=== PATIENT | male | born 1960 | race Caucasian/White ===

== ENCOUNTER 2017-09-16 14:42 | Emergency (ER) | payer MEDICAID, OTHER ==
[~2017-09-16] VITALS: Ht 175.3 cm; Wt 75.3 kg
[2017-09-16] MEDS ORDERED: ipratropium/albuterol 3ml nebule NEB ONE (15:55)
[2017-09-16] MEDS ORDERED: methylPREDNISolone sod succ 125mg/2ml vial IV ONE (15:55)
[2017-09-16 16:21] LABS: BASOPHILS # (AUTO) 0.1 X10'3 (0-0.2); BASOPHILS % (AUTO) 0.8 % (0-1); EOSINOPHILS # (AUTO) 0.8 X10'3 (0-0.9); EOSINOPHILS % (AUTO) 7.1 % (0-6); HEMOGLOBIN 16.8 g/dl (14.0-17.9); LYMPHOCYTES # (AUTO) 2.4 X10'3 (1.1-4.8); LYMPHOCYTES % (AUTO) 21.6 % (21-51); MEAN CORPUSCULAR HEMOGLOBIN 34.3 PG (27.0-31.0); MEAN CORPUSCULAR HGB CONC 34.2 % (33.0-36.5); MEAN CORPUSCULAR VOLUME 100.1 FL (78-98); MEAN PLATELET VOLUME 7.8 FL (7.4-10.4); MONOCYTES # (AUTO) 0.5 X10'3 (0-0.9); MONOCYTES % (AUTO) 4.8 % (2-12); NEUTROPHILS # (AUTO) 7.2 X10'3 (1.8-7.7); NEUTROPHILS % (AUTO) 65.7 % (42-75); PLATELET COUNT 297 X10'3 (140-440); RED BLOOD COUNT 4.89 X10'6 (4.70-6.10); RED CELL DISTRIBUTION WIDTH 13.1 % (11.5-14.5)
[2017-09-16 16:44] LABS: ALANINE AMINOTRANSFERASE 25 U/L (12-78); ALBUMIN 4.2 G/DL (3.4-5.0); ALBUMIN/GLOBULIN RATIO 1.1 (1.1-1.5); ALKALINE PHOSPHATASE 84 IU/L (46-116); ANION GAP 8 (8-16); ASPARTATE AMINO TRANSFERASE 16 U/L (10-37); BILIRUBIN,TOTAL 0.5 MG/DL (0.1-1.0); BLOOD UREA NITROGEN 13 MG/DL (7-18); BUN/CREATININE RATIO 15.3 (5.4-32.0); CALCIUM 9.3 MG/DL (8.5-10.1); CHLORIDE 106 MMOL/L (99-107); CREATININE 0.85 MG/DL (0.60-1.10); GLUCOSE 120 MG/DL (70-104); POTASSIUM 4.1 MMOL/L (3.5-5.1); SODIUM 143 MMOL/L (135-145); TOTAL CARBON DIOXIDE 29.3 MMOL/L (24-32); TOTAL PROTEIN 7.9 G/DL (6.4-8.2); eGFR > 90 ML/MIN
[2017-09-16 16:54] LABS: PARTIAL THROMBOPLASTIN TIME 29 SECONDS (22-32); PROTHROMBIN TIME 10.1 SECONDS (9.0-12.0)
[2017-09-16] MEDS ORDERED: AZIT250T PO (16:59)
[2017-09-16] MEDS ORDERED: ALBU8.5H8 IH (16:59)
[2017-09-16] MEDS ORDERED: PRED10TA23 PO (16:59)
[2017-09-16 17:34] VITALS: BP 123/86
== END 2017-09-16 17:35 | disposition home or self-care (01) ==
LOC: ER 14:43
DX: J44.1 Chronic obstructive pulmonary disease with (acute) exacerbation (principal); F17.200 Nicotine dependence, unspecified, uncomplicated; F12.10 Cannabis abuse, uncomplicated
CPT/HCPCS: 36415; 71045; 80053; 83605; 84484; 85025; 85610; 85730; 87040; 93005; 94640; 94760; 96374; 99285; J2930

== ENCOUNTER 2018-11-16 07:57 | Emergency (ER) | payer MEDICAID ==
[~2018-11-16] VITALS: Ht 175.3 cm; Wt 73.2 kg
[~2018-11-16 07:57] MED LIST: ALBU8.5H8 IH; AZIT250T PO
[2018-11-16] MEDS ORDERED: albuterol 2.5 MG/3 ML nebule CONTNEB PRN (08:05)
[2018-11-16] MEDS ORDERED: normal saline 1000ML IV soln IVB ONE (08:05)
[2018-11-16] MEDS ORDERED: methylPREDNISolone sod succ 125mg/2ml vial IV ONE (08:05)
[2018-11-16 08:52] LABS: BASOPHILS # (AUTO) 0.1 X10'3 (0-0.2); BASOPHILS % (AUTO) 1.4 % (0-1); EOSINOPHILS # (AUTO) 0.5 X10'3 (0-0.9); EOSINOPHILS % (AUTO) 6.7 % (0-6); HEMATOCRIT 47.7 % (42.0-52.0); HEMOGLOBIN 16.7 g/dl (14.0-17.9); LYMPHOCYTES # (AUTO) 2.4 X10'3 (1.1-4.8); MEAN CORPUSCULAR HEMOGLOBIN 34.9 PG (27.0-31.0); MEAN CORPUSCULAR VOLUME 99.6 FL (78-98); MEAN PLATELET VOLUME 8.2 FL (7.4-10.4); MONOCYTES # (AUTO) 0.6 X10'3 (0-0.9); NEUTROPHILS # (AUTO) 4.2 X10'3 (1.8-7.7); NEUTROPHILS % (AUTO) 53.9 % (42-75); PLATELET COUNT 284 X10'3 (140-440); RED BLOOD COUNT 4.79 X10'6 (4.70-6.10); RED CELL DISTRIBUTION WIDTH 12.8 % (11.5-14.5); WHITE BLOOD COUNT 7.9 X10'3 (4.5-11.0)
[2018-11-16 08:59] LABS: ALANINE AMINOTRANSFERASE 22 U/L (12-78); ALBUMIN 4.1 G/DL (3.4-5.0); ALBUMIN/GLOBULIN RATIO 1.1 (1.1-1.5); ALKALINE PHOSPHATASE 91 IU/L (46-116); ANION GAP 6 (8-16); ASPARTATE AMINO TRANSFERASE 15 U/L (10-37); BILIRUBIN,TOTAL 0.6 MG/DL (0.1-1.0); BLOOD UREA NITROGEN 12 MG/DL (7-18); CALCIUM 9.4 MG/DL (8.5-10.1); CHLORIDE 105 MMOL/L (99-107); CREATININE 0.86 MG/DL (0.60-1.10); GLUCOSE 90 MG/DL (70-104); POTASSIUM 4.2 MMOL/L (3.5-5.1); SODIUM 138 MMOL/L (135-145); TOTAL PROTEIN 7.8 G/DL (6.4-8.2); eGFR > 90 ML/MIN
[2018-11-16] MEDS ORDERED: ALBU6.7H INH (09:04)
[2018-11-16] MEDS ORDERED: PRED20TA PO (09:04)
[2018-11-16] MEDS ORDERED: FLUT1AER INH (09:04)
[2018-11-16 09:11] VITALS: BP 120/75
== END 2018-11-16 09:12 | disposition home or self-care (01) ==
LOC: ER 07:58
DX: J44.1 Chronic obstructive pulmonary disease with (acute) exacerbation (principal); F12.90 Cannabis use, unspecified, uncomplicated; Z98.890 Other specified postprocedural states; Z79.899 Other long term (current) drug therapy
CPT/HCPCS: 36415; 71045; 80053; 85025; 93005; 94640; 94760; 96374; 99284; J2930; J7030

== ENCOUNTER 2019-08-23 18:36 | Emergency (ER) | payer MEDICAID ==
[~2019-08-23] VITALS: Ht 175.3 cm; Wt 75.0 kg
[~2019-08-23 18:36] MED LIST changes: +ALBU6.7H9 INH; +FLUT1AER INH
[2019-08-23 18:39] VITALS: BP 158/87
[2019-08-23] MEDS ORDERED: HYDROcodone/acetaminophen 10/325mg tab PO STA (18:42)
--- NOTE | 2019-08-23 18:44 | NUR ---
PT HAS ICE PACK AND SAFE RIDE HOME. NORCO AND XRAY HAVE BEEN ORDERED PER PROTOCOL.
[2019-08-23] MEDS ORDERED: HYDR-4383 PO (20:08)
[2019-08-23] MEDS ORDERED: IBUP-1984 PO (20:08)
== END 2019-08-23 20:43 | disposition home or self-care (01) ==
LOC: ER 18:36
DX: S52.502A Unspecified fracture of the lower end of left radius, initial encounter for closed fracture (principal); J44.9 Chronic obstructive pulmonary disease, unspecified; F12.90 Cannabis use, unspecified, uncomplicated; Z98.890 Other specified postprocedural states; Z79.2 Long term (current) use of antibiotics; Z79.899 Other long term (current) drug therapy; W11.XXXA Fall on and from ladder, initial encounter; Y93.89 Activity, other specified; Y92.89 Other specified places as the place of occurrence of the external cause; Y99.8 Other external cause status
CPT/HCPCS: 29125; 73110; 99283

== ENCOUNTER 2019-09-02 15:17 | Outpatient (CLI) | payer MEDICAID ==
[~2019-09-02 15:17] MED LIST changes: +HYDR-4383 PO
[2019-09-03] MEDS ORDERED: TIOT4MIS2 PO (12:18)
== END 2019-09-02 17:30 | disposition home or self-care (01) ==
LOC: ORTHO 15:17
PROVIDERS: ATTEND Orthopaedic Surgery
DX: S52.552D Other extraarticular fracture of lower end of left radius, subsequent encounter for closed fracture with routine healing (principal); J44.9 Chronic obstructive pulmonary disease, unspecified; F17.210 Nicotine dependence, cigarettes, uncomplicated; F12.90 Cannabis use, unspecified, uncomplicated; Z98.890 Other specified postprocedural states; Z72.89 Other problems related to lifestyle; Z79.899 Other long term (current) drug therapy; X58.XXXD Exposure to other specified factors, subsequent encounter
CPT/HCPCS: 73110; G0463

== ENCOUNTER 2019-09-03 11:00 | Day surgery (SDC) | payer MEDICAID ==
[~2019-09-03] VITALS: Ht 175.3 cm; Wt 78.6 kg
[2019-09-03] VITALS (9 sets, daily range): BP systolic 119–161; BP diastolic 74–92
[2019-09-03] MEDS ORDERED: cefazolin/dext.iso 2gm/100ml 100 ML IV ONE (11:05)
[2019-09-03] MEDS ORDERED: ringers solution, lacted 1,000 ML IV SCH ×3 (11:06→12:59)
[2019-09-03] MEDS ORDERED: famotidine 10mg tablet PO ONE (11:06)
[2019-09-03] MEDS ORDERED: morphine 4 MG/ML inj SYRINge IV PRN ×4 (11:40→13:00)
[2019-09-03] MEDS ORDERED: ondansetron/PF 4mg/2ml inj IV PRN ×2 (11:40→13:00)
[2019-09-03] MEDS ORDERED: proCHLORperazine 10 MG/2 ml inj IV PRN (11:40)
[2019-09-03] MEDS ORDERED: meperidine/PF 25mg/ml syringe IV PRN ×3 (11:40)
[2019-09-03] MEDS ORDERED: albuterol 2.5 MG/3 ML nebule NEB ONE (11:55)
[2019-09-03 12:05] LABS: BASOPHILS # (AUTO) 0.1 X10'3 (0-0.2); BASOPHILS % (AUTO) 0.9 % (0-1); EOSINOPHILS # (AUTO) 0.4 X10'3 (0-0.9); EOSINOPHILS % (AUTO) 4.9 % (0-6); LYMPHOCYTES # (AUTO) 2.2 X10'3 (1.1-4.8); LYMPHOCYTES % (AUTO) 24.3 % (21-51); MEAN CORPUSCULAR HEMOGLOBIN 35.6 PG (27.0-31.0); MEAN CORPUSCULAR HGB CONC 35.2 g/dL (33.0-36.5); MEAN CORPUSCULAR VOLUME 101.1 FL (78-98); MEAN PLATELET VOLUME 7.7 FL (7.4-10.4); MONOCYTES # (AUTO) 0.6 X10'3 (0-0.9); MONOCYTES % (AUTO) 6.8 % (2-12); NEUTROPHILS # (AUTO) 5.6 X10'3 (1.8-7.7); NEUTROPHILS % (AUTO) 63.1 % (42-75); PRE OP HEMATOCRIT 46.5 % (42.0-52.0); PRE OP HEMOGLOBIN 16.4 g/dL (14.0-17.9); PRE OP PLATELET COUNT 296 X10'3 (140-440); RED CELL DISTRIBUTION WIDTH 13.2 % (11.5-14.5)
[2019-09-03] MEDS ORDERED: TIOT4MIS2 PO (12:18)
[2019-09-03 12:22] LABS: ALBUMIN/GLOBULIN RATIO 1.1 (1.1-1.5); ALKALINE PHOSPHATASE 87 IU/L (46-116); BLOOD UREA NITROGEN 10 MG/DL (7-18); BUN/CREATININE RATIO 10.9 (5.4-32.0); CALCIUM 9.2 MG/DL (8.5-10.1); CHLORIDE 107 MMOL/L (99-107); CREATININE 0.92 MG/DL (0.60-1.10); PRE OP ALT 29 U/L (30-65); PRE OP ANION GAP 6 (8-16); PRE OP AST 13 U/L (10-37); PRE OP BILIRUB, TOTAL 0.5 MG/DL (0.0-1.0); PRE OP GLUCOSE 97 MG/DL (70-104); PRE OP POTASSIUM 4.3 MMOL/L (3.4-5.1); PRE OP SODIUM 141 MMOL/L (135-145); TOTAL CARBON DIOXIDE 28.5 MMOL/L (24-32); TOTAL PROTEIN 7.5 G/DL (6.4-8.2); eGFR 84 ML/MIN
[2019-09-03] MEDS ORDERED: hydrALAZINE 20mg/ml inj. IV PRN (13:00)
[2019-09-03] MEDS ORDERED: labetalol 20mg/4ml (5mg/ml) syringe IV PRN (13:00)
[2019-09-03] MEDS ORDERED: fentaNYL/PF 50MCG/1 ML 2ML syringe IV PRN ×2 (13:00)
[2019-09-03] MEDS ORDERED: dexamethasone sod phosphate 10mg/ml inj ONE (13:45)
[2019-09-03] MEDS ORDERED: labetalol 20mg/4ml (5mg/ml) syringe IV ONE (13:45)
[2019-09-03] MEDS ORDERED: sevoflurane 250ml liquid IH ONE (13:45)
[2019-09-03] MEDS ORDERED: fentaNYL/PF 50MCG/1 ML 2ML syringe ONE ×2 (13:50→15:05)
[2019-09-03] MEDS ORDERED: midazolam 2 mg/2 ml injection ONE (13:50)
[2019-09-03] MEDS ORDERED: LIDOcaine 1%/PF 5ML 10 MG/ML VIAL ONE (13:51)
[2019-09-03] MEDS ORDERED: propofol inj 20 ML IV ONE (13:51)
[2019-09-03] MEDS ORDERED: ROPIVAcaine 0.5% (5mg/ml) 30ml vial ONE (13:55)
[2019-09-03] MEDS ORDERED: ondansetron/PF 4mg/2ml inj ONE (14:07)
--- NOTE | 2019-09-03 15:20 | NUR ---
Received from OR via BED, accompanied by Anesthesiologist DR CRANE-- and report given by Anesthesiolgist. PATIENT A&OX4, DENIES PAIN, V/S WNL, NEUROVASCULAR CHECKS INTACT, 20G PIV RUE, SCD ON, LEFT ARM DRESSING SPLINT CDI
[2019-09-03] MEDS ORDERED: HYDROcodone/acetaminophen 10/325mg tab PO ONE (15:50)
--- NOTE | 2019-09-03 16:20 | NUR ---
PATIENT A&OX4, DENIES PAIN, V/S WNL, NEUROVASCULAR CHECKS INTACT, 20G PIV RUE d/c, SCD Off, LEFT ARM DRESSING SPLINT CDI. I HAVE REVIEWED D/C INSTRUCTIONS WITH PATIENT AND FAMILY AND THEY HAVE VERBALIZED UNDERSTANDING. PATIENT D/C HOME WITH ALL BELONGINGS AND FAMILY GAVE TRANSPORT HOME.
== END 2019-09-03 16:20 | disposition home or self-care (01) ==
LOC: PAS 11:00
PROVIDERS: ATTEND Orthopaedic Surgery
DX: S52.552A Other extraarticular fracture of lower end of left radius, initial encounter for closed fracture (principal); J44.9 Chronic obstructive pulmonary disease, unspecified; F17.210 Nicotine dependence, cigarettes, uncomplicated; Z98.890 Other specified postprocedural states; F12.90 Cannabis use, unspecified, uncomplicated; Z72.89 Other problems related to lifestyle; Z79.899 Other long term (current) drug therapy; G89.18 Other acute postprocedural pain; W19.XXXA Unspecified fall, initial encounter; Y93.89 Activity, other specified; Y92.89 Other specified places as the place of occurrence of the external cause; Y99.8 Other external cause status
CPT/HCPCS: 25607; 36415; 64450; 80053; 85025; 93005; 94640; 94760; C1713; J1100; J2250; J2405; J2704; J3010; A4215; A4618; A6449; A7000; J2795; J3490; J7120

== ENCOUNTER 2019-09-23 15:34 | Outpatient (CLI) | payer MEDICAID ==
[~2019-09-23 15:34] MED LIST changes: -ALBU6.7H9 INH; -AZIT250T PO; -HYDR-4383 PO; +TIOT4MIS2 PO
== END 2019-09-23 16:53 | disposition home or self-care (01) ==
LOC: ORTHO 15:34
PROVIDERS: ATTEND Orthopaedic Surgery
DX: S52.552D Other extraarticular fracture of lower end of left radius, subsequent encounter for closed fracture with routine healing (principal); J44.9 Chronic obstructive pulmonary disease, unspecified; F17.210 Nicotine dependence, cigarettes, uncomplicated; Z98.890 Other specified postprocedural states; Z79.899 Other long term (current) drug therapy; X58.XXXD Exposure to other specified factors, subsequent encounter
CPT/HCPCS: G0463

== ENCOUNTER 2019-10-19 15:26 | Outpatient (CLI) | payer MEDICAID | END 2019-10-19 16:30 | disposition home or self-care (01) | LOC: ORTHO 15:26 | PROVIDERS: ATTEND Orthopaedic Surgery | DX: S52.615D Nondisplaced fracture of left ulna styloid process, subsequent encounter for closed fracture with routine healing (principal); M25.432 Effusion, left wrist; Z98.890 Other specified postprocedural states; X58.XXXD Exposure to other specified factors, subsequent encounter | CPT/HCPCS: 73100; G0463 ==

== ENCOUNTER 2021-07-01 11:31 | Inpatient (IN) | payer MEDICAID ==
[~2021-07-01] VITALS: Ht 170.2 cm; Wt 97.5 kg
[~2021-07-01 11:31] MED LIST changes: +ALBU8.5H17 IH; -ALBU8.5H8 IH; +TIOT4MIS2 IH; -TIOT4MIS2 PO; +amiodarone 50MG/ML inj IV ONE; +atropine 0.1mg/ml 10ml syringe ONE; +calcium chloride 100 MG/1 ML inj IV ONE; +epiNEPHrine 0.1mg/ml 10ml syringe ONE; +heparin, porcine-25,000 units/D5-250ml premix IV ONE; +nitroGLYCERIN in D5W 50mg/250ml (Tridil) infusion IV ONE; +sod chloride 0.9% 10ml flush syringe IV ONE; +sodium bicarbonate (8.4%) 1 mEq/ml syringe ONE
[2021-07-01] MEDS ORDERED: heparin 10,000 units/1 ML INJ IV ONE ×2 (11:55→12:00)
[2021-07-01] MEDS ORDERED: heparin 10,000 units/1 ML INJ IV PRN (11:55)
[2021-07-01] MEDS ORDERED: aspirin 300mg supp.rect RC ONE (11:55)
[2021-07-01 11:59] LABS: ABG BASE EXCESS -13.3 mmol/L (-2.0-2.0); ABG HCO3 22.4 mmol/L (22.0-26.0); ABG OXYGEN SATURATION 98.8 % (94-97); ABG PCO2 (T) 118.8 mmHg (35.0-48.0); ABG PO2 (T) 439.1 mmHg (75.0-100.0); ALLEN'S TEST POSITIVE; FCOHb 7.3 % (0.0-3.9); FMetHb 0.3 % (0.0-1.5); FO2Hb 91.3 % (94-97); PEEP 5 cm H2O; RESPIRATORY RATE 18 b/min; TIDAL VOLUME 400 mL; TOTAL HEMOGLOBIN 14.3 G/dl (14.0-18.0)
[2021-07-01] MEDS ORDERED: ALBU8.5H17 IH (12:00)
[2021-07-01] MEDS ORDERED: FLUT1AER4 INH (12:00)
[2021-07-01] MEDS: epiNEPHrine inj 5 MG in normal saline 250ml IV soln 245 ML IV SCH (12:07)
[2021-07-01] MEDS ORDERED: morphine 4 MG/ML inj SYRINge IV PRN (12:15)
[2021-07-01] MEDS ORDERED: magnesium hydroxide 30ml (MOM) UD suspension PO PRN (12:15)
[2021-07-01] MEDS ORDERED: Neutra Phos packet PO PRN (12:15)
[2021-07-01] MEDS ORDERED: CISatracurium **Bolus** 2 mg/ml inj IV PRN (12:15)
[2021-07-01] MEDS ORDERED: potassium Cl 20 mEq SR tablet PO PRN ×2 (12:15)
[2021-07-01] MEDS ORDERED: acetaminophen 325mg tablet PO PRN ×2 (12:15)
[2021-07-01] MEDS ORDERED: sodium phosphate inj. 15 MMOL in dextrose 5%-water 250 ML IV PRN (12:15)
[2021-07-01] MEDS ORDERED: sodium phosphate inj. 30 MMOL in dextrose 5%-water 250 ML IV PRN (12:15)
[2021-07-01] MEDS ORDERED: magnesium Cl slow-release 64mg tablet PO PRN (12:15)
[2021-07-01] MEDS ORDERED: magnesium 4gm in 100ml NS 100 ML IV PRN (12:15)
[2021-07-01] MEDS ORDERED: LIDOcaine 2% 10ml TOPICAL JELLY (Urojet) TP ONE ×2 (12:15)
[2021-07-01] MEDS ORDERED: morphine 2 MG/ML inj. syringe IV PRN (12:15)
[2021-07-01] MEDS ORDERED: magnesium 2GM in 50ml NS 50 ML IV PRN (12:15)
[2021-07-01] MEDS ORDERED: ondansetron/PF 4mg/2ml inj IV PRN (12:15)
[2021-07-01 12:21] LABS: BASOPHILS # (AUTO) 0.1 X10'3 (0-0.2); BASOPHILS % (AUTO) 0.6 % (0-1); EOSINOPHILS # (AUTO) 0.3 X10'3 (0-0.9); EOSINOPHILS % (AUTO) 1.8 % (0-6); HEMATOCRIT 40.8 % (42.0-52.0); LYMPHOCYTES # (AUTO) 4.4 X10'3 (1.1-4.8); LYMPHOCYTES % (AUTO) 31.2 % (21-51); MEAN CORPUSCULAR HEMOGLOBIN 37.6 PG (27.0-31.0); MEAN CORPUSCULAR HGB CONC 34.3 g/dL (33.0-36.5); MEAN CORPUSCULAR VOLUME 109.7 FL (78-98); MEAN PLATELET VOLUME 8.3 FL (7.4-10.4); MONOCYTES # (AUTO) 0.7 X10'3 (0-0.9); MONOCYTES % (AUTO) 4.6 % (2-12); NEUTROPHILS # (AUTO) 8.8 X10'3 (1.8-7.7); NEUTROPHILS % (AUTO) 61.8 % (42-75); PLATELET COUNT 207 X10'3 (140-440); RED BLOOD COUNT 3.72 X10'6 (4.70-6.10); RED CELL DISTRIBUTION WIDTH 13.7 % (11.5-14.5); WHITE BLOOD COUNT 14.2 X10'3 (4.5-11.0)
[2021-07-01 12:22] LABS: PARTIAL THROMBOPLASTIN TIME 27 SECONDS (22-32)
[2021-07-01 12:24] LABS: ALANINE AMINOTRANSFERASE 67 U/L (12-78); ALBUMIN 2.7 G/DL (3.4-5.0); ALKALINE PHOSPHATASE 107 IU/L (46-116); ANION GAP 15 (8-16); ASPARTATE AMINO TRANSFERASE 86 U/L (10-37); BILIRUBIN,TOTAL 0.4 MG/DL (0.1-1.0); BLOOD UREA NITROGEN 13 MG/DL (7-18); BUN/CREATININE RATIO 7.3 (5.4-32.0); CALCIUM 11.2 MG/DL (8.5-10.1); CHLORIDE 107 MMOL/L (99-107); CREATININE 1.78 MG/DL (0.60-1.10); GLUCOSE 369 MG/DL (70-104); SODIUM 144 MMOL/L (135-145); TOTAL CARBON DIOXIDE 21.7 MMOL/L (24-32); TOTAL PROTEIN 5.4 G/DL (6.4-8.2); eGFR 39 ML/MIN
[2021-07-01] MEDS ORDERED: nitroGLYCERIN-Tridil 50MG/D5W 250 ML IV SCH (12:25)
[2021-07-01] MEDS: heparin 25,000 UNIT/250ml bag 250 ML IV SCH (12:34)
[2021-07-01 12:45] LABS: MAGNESIUM 2.8 MG/DL (1.5-2.4)
[2021-07-01 12:48] LABS: TOTAL CELLS COUNTED 100
[2021-07-01 12:50] LABS: PLATELET ESTIMATE NORMAL
[2021-07-01] MEDS ORDERED: fentaNYL/PF 50MCG/1 ML 2ML syringe ONE (12:57)
[2021-07-01] MEDS ORDERED: LIDOcaine 1% (10mg/ml)w/preservative injection 20ml MDV ONE (12:57)
[2021-07-01] MEDS ORDERED: iohexol 350 MG/1 ML 200ml bottle ONE (12:57)
[2021-07-01] MEDS ORDERED: heparin 1,000unit/ml 10ml vial 10 ML ONE (12:57)
[2021-07-01] MEDS ORDERED: midazolam 1 mg/ML 2ml injection ONE (12:57)
[2021-07-01] MEDS: amiodarone/D5 360MG/200ML BAG 200 ML IV SCH ×2 (13:01→19:43)
[2021-07-01 13:02] LABS: PHOSPHORUS 14.6 MG/DL (2.3-4.5)
--- NOTE | 2021-07-01 13:10 | NUR ---
To laborer laboratory at this time.
[2021-07-01] MEDS ORDERED: iohexol 350 MG/ML 50ML vial IV ONE (13:19)
[2021-07-01] MEDS ORDERED: nitroGLYCERIN-Tridil 50MG/D5W 250 ML IV ONE (13:23)
[2021-07-01] MEDS ORDERED: iohexol 350MG/ML 100ml bottle IV ONE (13:48)
[2021-07-01] MEDS ORDERED: ticagrelor 90mg tablet ONE (13:54)
[2021-07-01] MEDS ORDERED: furosemide 40mg/4ml inj ONE (14:27)
--- NOTE | 2021-07-01 14:49 | NUR ---
pt brought back from irrigation laborer at 1445, cpr started 14:47, epi given 14:48. bicarb 1452. epi given 1452. pulse check 1453. Fine vfib, patient shocked 1454. pulse found 1455. bp 150/112 at 1456. 1501 versed increased to 2.
[2021-07-01] MEDS ORDERED: amiodarone 50MG/ML inj IV ONE ×2 (15:05→15:08)
[2021-07-01] MEDS ORDERED: magnesium 2GM in 50ml NS 50 ML IV ONE (15:05)
[2021-07-01] MEDS ORDERED: amiodarone 150mg/dext, iso-os 100 ML IV ONE (15:07)
[2021-07-01 15:25] LABS: ABG BASE EXCESS -10.2 mmol/L (-2.0-2.0); ABG HCO3 18.6 mmol/L (22.0-26.0); ABG OXYGEN SATURATION 98.1 % (94-97); ABG PCO2 (T) 51.4 mmHg (35.0-48.0); FCOHb 2.8 % (0.0-3.9); FMetHb 0.1 % (0.0-1.5); FO2Hb 95.3 % (94-97); PEEP 5 cm H2O; RESPIRATORY RATE 32 b/min; TIDAL VOLUME 450 mL; TOTAL HEMOGLOBIN 16.6 G/dl (14.0-18.0)
[2021-07-01] MEDS ORDERED: potassium Cl 20 mEq/100mL bag IV SCH (15:36)
[2021-07-01] MEDS: normal saline 1000ml 1,000 ML IV SCH ×2 (15:57→19:51)
[2021-07-01 19:00] VITALS: BP 101/65
[2021-07-01 20:00] VITALS: BP 101/70
[2021-07-01] MEDS ORDERED: heparin, porcine 5000 units/ml vial SQ SCH (20:00)
[2021-07-01 20:24] LABS: ABG BASE EXCESS -9.1 mmol/L (-2.0-2.0); ABG HCO3 18.9 mmol/L (22.0-26.0); ABG OXYGEN SATURATION 98.7 % (94-97); ABG PCO2 (T) 42.5 mmHg (35.0-48.0); ABG PO2 (T) 128.6 mmHg (75.0-100.0); FCOHb 1.2 % (0.0-3.9); FMetHb 0.1 % (0.0-1.5); FO2Hb 97.4 % (94-97); PATIENT TEMPERATURE 34.1; PEEP 5 cm H2O; RESPIRATORY RATE 30 b/min; TOTAL HEMOGLOBIN 16.9 G/dl (14.0-18.0)
[2021-07-01 20:25] LABS: ALBUMIN 3.1 G/DL (3.4-5.0); ANION GAP 13 (8-16); BLOOD UREA NITROGEN 24 MG/DL (7-18); BUN/CREATININE RATIO 10.8 (5.4-32.0); CALCIUM 9.1 MG/DL (8.5-10.1); CHLORIDE 106 MMOL/L (99-107); CREATININE 2.23 MG/DL (0.60-1.10); GLUCOSE 244 MG/DL (70-104); MAGNESIUM 3.2 MG/DL (1.5-2.4); POTASSIUM 4.7 MMOL/L (3.5-5.1); SODIUM 139 MMOL/L (135-145); TOTAL CARBON DIOXIDE 19.8 MMOL/L (24-32); eGFR 30 ML/MIN
[2021-07-01 21:00] VITALS: BP 98/71
[2021-07-01 21:38] LABS: CKMB RELATIVE INDEX 12.4 RATIO (0-2.5); CREATINE KINASE 6635 U/L (39-308)
[2021-07-01 21:59] LABS: HEMATOCRIT 46.8 % (42.0-52.0); HEMOGLOBIN 16.3 g/dl (14.0-17.9); MEAN CORPUSCULAR HEMOGLOBIN 37.1 PG (27.0-31.0); MEAN CORPUSCULAR HGB CONC 34.8 g/dL (33.0-36.5); MEAN CORPUSCULAR VOLUME 106.5 FL (78-98); MEAN PLATELET VOLUME 7.8 FL (7.4-10.4); PLATELET COUNT 386 X10'3 (140-440); RED BLOOD COUNT 4.39 X10'6 (4.70-6.10); RED CELL DISTRIBUTION WIDTH 13.7 % (11.5-14.5)
[2021-07-01 22:00] VITALS: BP 109/70
[2021-07-01 22:09] LABS: WHITE BLOOD COUNT 34.5 X10'3 (4.5-11.0)
[2021-07-01 22:21] LABS: EOSINOPHILS % (MANUAL) 0.5 % (0-6); METAMYLEOCYTES% (MANUAL) 1.5 % (0-0); MYELOCYTES % (MANUAL) 0.5 % (0-0); REACTIVE LYMPHOCYTES % 0.5 % (0-0); TOTAL CELLS COUNTED 200
[2021-07-01 22:22] LABS: PLATELET ESTIMATE NORMAL
[2021-07-01 23:00] VITALS: BP 111/76
[2021-07-02] VITALS (25 sets, daily range): BP systolic 94–125; BP diastolic 49–66
[2021-07-02] MEDS: amiodarone/D5 360MG/200ML BAG 200 ML IV SCH ×5 (00:35→23:54)
[2021-07-02] MEDS: epiNEPHrine inj 5 MG in normal saline 250ml IV soln 245 ML IV SCH ×5 (01:04→23:51)
[2021-07-02] MEDS: midazolam 100mg in NS 100ml 100 ML IV PRN ×3 (01:05→19:45)
[2021-07-02] MEDS: FENTANYL-0.9 % NACL/PF 100 ML IV PRN ×4 (01:05→19:45)
[2021-07-02 01:20] LABS: PARTIAL THROMBOPLASTIN TIME 68 SECONDS (22-32)
[2021-07-02 01:23] LABS: BASOPHILS % (AUTO) 0.1 % (0-1); EOSINOPHILS % (AUTO) 0.1 % (0-6); HEMATOCRIT 45.7 % (42.0-52.0); LYMPHOCYTES % (AUTO) 3.5 % (21-51); MEAN CORPUSCULAR VOLUME 105.5 FL (78-98); MEAN PLATELET VOLUME 7.8 FL (7.4-10.4); MONOCYTES # (AUTO) 0.8 X10'3 (0-0.9); NEUTROPHILS # (AUTO) 25.5 X10'3 (1.8-7.7); NEUTROPHILS % (AUTO) 93.3 % (42-75); PLATELET COUNT 391 X10'3 (140-440); RED BLOOD COUNT 4.33 X10'6 (4.70-6.10); RED CELL DISTRIBUTION WIDTH 13.7 % (11.5-14.5)
[2021-07-02] MEDS: normal saline 1000ml 1,000 ML IV SCH ×4 (01:35→21:51)
[2021-07-02 01:38] LABS: WHITE BLOOD COUNT 27.4 X10'3 (4.5-11.0)
[2021-07-02 01:43] LABS: TOTAL CELLS COUNTED 100
[2021-07-02 01:44] LABS: PLATELET ESTIMATE NORMAL
[2021-07-02 01:54] LABS: ALBUMIN 2.9 G/DL (3.4-5.0); ANION GAP 21 (8-16); BLOOD UREA NITROGEN 29 MG/DL (7-18); BUN/CREATININE RATIO 11.4 (5.4-32.0); CALCIUM 8.8 MG/DL (8.5-10.1); CHLORIDE 107 MMOL/L (99-107); CREATININE 2.55 MG/DL (0.60-1.10); GLUCOSE 276 MG/DL (70-104); MAGNESIUM 3.1 MG/DL (1.5-2.4); PHOSPHORUS 5.2 MG/DL (2.3-4.5); POTASSIUM 3.5 MMOL/L (3.5-5.1); SODIUM 146 MMOL/L (135-145); TOTAL CARBON DIOXIDE 18.5 MMOL/L (24-32); eGFR 26 ML/MIN
[2021-07-02 02:26] LABS: ABG BASE EXCESS -11.1 mmol/L (-2.0-2.0); ABG HCO3 15.2 mmol/L (22.0-26.0); ABG OXYGEN SATURATION 99.1 % (94-97); ABG PCO2 (T) 31.8 mmHg (35.0-48.0); ABG PO2 (T) 144.9 mmHg (75.0-100.0); FCOHb 1.5 % (0.0-3.9); FMetHb 0.3 % (0.0-1.5); FO2Hb 97.3 % (94-97); PATIENT TEMPERATURE 34.4; PEEP 5 cm H2O; RESPIRATORY RATE 30 b/min; TOTAL HEMOGLOBIN 16.3 G/dl (14.0-18.0)
[2021-07-02 02:28] LABS: CREATINE KINASE 6608 U/L (39-308)
[2021-07-02 02:29] LABS: CKMB RELATIVE INDEX 13.8 RATIO (0-2.5)
[2021-07-02] MEDS ORDERED: dextrose ORAL solution 15 GM/59 ML bottle PO PRN ×2 (03:10)
[2021-07-02] MEDS ORDERED: insulin Lispro (HumaLOG) vial - multi-dose SQ SCH (03:10)
[2021-07-02] MEDS ORDERED: MESSAGE TO PHARMACY PO ONE (03:10)
[2021-07-02] MEDS ORDERED: glucagon, human recombinant 1mg kit SUBCUT PRN (03:10)
[2021-07-02] MEDS ORDERED: dextrose 50%-water 50ml dispensing syringe IV PRN ×2 (03:10)
[2021-07-02] MEDS: epiNEPHrine inj 10 MG in normal saline 250ml IV soln 240 ML IV SCH (05:00)
[2021-07-02 05:06] LABS: HEMOGLOBIN A1C 4.5 % (4.5-6.2)
[2021-07-02 05:34] LABS: ALANINE AMINOTRANSFERASE 199 U/L (12-78); ALBUMIN 2.8 G/DL (3.4-5.0); ALBUMIN/GLOBULIN RATIO 0.9 (1.1-1.5); ALKALINE PHOSPHATASE 147 IU/L (46-116); ANION GAP 17 (8-16); ASPARTATE AMINO TRANSFERASE 556 U/L (10-37); BILIRUBIN,TOTAL 1.1 MG/DL (0.1-1.0); BLOOD UREA NITROGEN 31 MG/DL (7-18); BUN/CREATININE RATIO 12.2 (5.4-32.0); CALCIUM 8.6 MG/DL (8.5-10.1); CHLORIDE 108 MMOL/L (99-107); CREATININE 2.54 MG/DL (0.60-1.10); GLUCOSE 257 MG/DL (70-104); POTASSIUM 3.2 MMOL/L (3.5-5.1); SODIUM 141 MMOL/L (135-145); TOTAL CARBON DIOXIDE 16.3 MMOL/L (24-32); TOTAL PROTEIN 5.9 G/DL (6.4-8.2); eGFR 26 ML/MIN
[2021-07-02 06:07] LABS: CKMB RELATIVE INDEX 18.6 RATIO (0-2.5); CREATINE KINASE 5001 U/L (39-308)
[2021-07-02] MEDS ORDERED: pantoprazole 40 MG vial IV ONE (06:25)
--- NOTE | 2021-07-02 06:30 | NUR ---
Patient in room ICU 2042. I have received report from Sunitha ALLRED and had the opportunity to ask questions and assume patient care.
[2021-07-02] MEDS ORDERED: normal saline 1000ml 1,000 ML IV ONE (06:55)
[2021-07-02 07:05] LABS: PARTIAL THROMBOPLASTIN TIME 63 SECONDS (22-32)
[2021-07-02] MEDS ORDERED: insulin regular, human 10 units/0.1 ml syringe IV ONE (08:10)
[2021-07-02] MEDS ORDERED: potassium Cl 20 mEq/100mL bag IV ONE (08:30)
[2021-07-02] MEDS: aspirin 81mg tab.chew PO SCH (08:30)
[2021-07-02] MEDS ORDERED: potassium Cl 20mEq/100mL bag 100 ML IV ONE (08:32)
[2021-07-02 08:42] LABS: ABG HCO3 15.9 mmol/L (22.0-26.0); ABG OXYGEN SATURATION 97.2 % (94-97); ABG PCO2 (T) 33.9 mmHg (35.0-48.0); ABG PO2 (T) 81.9 mmHg (75.0-100.0); FCOHb 1.4 % (0.0-3.9); FMetHb 0.3 % (0.0-1.5); FO2Hb 95.5 % (94-97); PATIENT TEMPERATURE 33.8; PEEP 5 cm H2O; RESPIRATORY RATE 30 b/min; TOTAL HEMOGLOBIN 15.4 G/dl (14.0-18.0)
[2021-07-02] MEDS: carvedilol 6.25mg tablet PO SCH ×2 (10:10→20:00)
[2021-07-02] MEDS: lisinopril 5mg tablet PO SCH (10:10)
[2021-07-02] MEDS: ticagrelor 90mg tablet PO SCH ×2 (11:07→20:27)
--- NOTE | 2021-07-02 12:25 | NUR ---
Initial: Pt admitted s/p multiple code blues, currently intubated and sedated. TF recs below for if prolonged intubation. If pt extubated, advance diet as medically indicated to Regular. LB 07/01. Will continue to monitor and make recommendations as appropriate. Recs: 1) IF prolonged intubation, Continuous TF using Vital AF at 75ml/hr goal 2) IF TF, additional water flush 150ml Q4H; monitor serum Na 3) IF TF, PALB Q /; daily wts 4) Bowel care per rx 5) Upon extubation, advance as medically indicated to Regular diet Addendum: 07/02/21 at [address] Amended: Links added.
[2021-07-02 12:43] LABS: PARTIAL THROMBOPLASTIN TIME 53 SECONDS (22-32)
[2021-07-02 13:56] LABS: CHOL/HDL RATIO 3.9 (0.00-4.99); CHOLESTEROL 108 MG/DL (0-200); HDL CHOLESTEROL 28 MG/DL (35-60); LDL CHOLESTEROL 58 MG/DL (50-100); TRIGLYCERIDES 111 MG/DL (20-135)
[2021-07-02 14:01] LABS: CKMB RELATIVE INDEX 24.2 RATIO (0-2.5); CREATINE KINASE 3316 U/L (39-308); TROPONIN I 123.11 NG/ML (0.0-0.05)
[2021-07-02 14:53] LABS: ABG BASE EXCESS -11.2 mmol/L (-2.0-2.0); ABG HCO3 16.5 mmol/L (22.0-26.0); ABG OXYGEN SATURATION 95.8 % (94-97); ABG PCO2 (T) 36.9 mmHg (35.0-48.0); ABG PO2 (T) 70.2 mmHg (75.0-100.0); FMetHb 0.3 % (0.0-1.5); FO2Hb 93.6 % (94-97); PATIENT TEMPERATURE 33.4; PEEP 5 cm H2O; RESPIRATORY RATE 30 b/min; TOTAL HEMOGLOBIN 15.7 G/dl (14.0-18.0)
[2021-07-02] MEDS: heparin 25,000 UNIT/250ml bag 250 ML IV SCH ×2 (15:42→23:06)
[2021-07-02 16:16] LABS: ALBUMIN 2.2 G/DL (3.4-5.0); ANION GAP 15 (8-16); BLOOD UREA NITROGEN 36 MG/DL (7-18); BUN/CREATININE RATIO 16.6 (5.4-32.0); CALCIUM 7.5 MG/DL (8.5-10.1); CHLORIDE 115 MMOL/L (99-107); CREATININE 2.17 MG/DL (0.60-1.10); GLUCOSE 139 MG/DL (70-104); MAGNESIUM 2.4 MG/DL (1.5-2.4); POTASSIUM 3.5 MMOL/L (3.5-5.1); SODIUM 148 MMOL/L (135-145); TOTAL CARBON DIOXIDE 17.7 MMOL/L (24-32); eGFR 31 ML/MIN
[2021-07-02 16:30] LABS: CREATINE KINASE 2504 U/L (39-308)
[2021-07-02 16:44] LABS: CKMB RELATIVE INDEX 29.4 RATIO (0-2.5)
--- NOTE | 2021-07-02 18:23 | NUR ---
Problems reprioritized. Patient report given, questions answered & plan of care reviewed with Sunitha ALLRED.
[2021-07-02 20:21] LABS: PARTIAL THROMBOPLASTIN TIME 53 SECONDS (22-32)
[2021-07-02] MEDS: insulin glargine (Lantus) pen - multi-dose SQ SCH (21:00)
[2021-07-02 21:19] LABS: ABG BASE EXCESS -13.8 mmol/L (-2.0-2.0); ABG HCO3 12.1 mmol/L (22.0-26.0); ABG OXYGEN SATURATION 91.7 % (94-97); ABG PCO2 (T) 25.2 mmHg (35.0-48.0); FMetHb 0.3 % (0.0-1.5); FO2Hb 89.6 % (94-97); PATIENT TEMPERATURE 33.6; PEEP 5 cm H2O; RESPIRATORY RATE 30 b/min; TOTAL HEMOGLOBIN 14.8 G/dl (14.0-18.0)
[2021-07-02 21:47] LABS: ANION GAP 17 (8-16); BLOOD UREA NITROGEN 38 MG/DL (7-18); BUN/CREATININE RATIO 14.8 (5.4-32.0); CALCIUM 7.2 MG/DL (8.5-10.1); CHLORIDE 115 MMOL/L (99-107); CREATININE 2.56 MG/DL (0.60-1.10); GLUCOSE 142 MG/DL (70-104); MAGNESIUM 2.2 MG/DL (1.5-2.4); PHOSPHORUS 3.7 MG/DL (2.3-4.5); POTASSIUM 3.2 MMOL/L (3.5-5.1); SODIUM 147 MMOL/L (135-145); eGFR 26 ML/MIN
[2021-07-02 22:03] LABS: TROPONIN I 100.03 NG/ML (0.0-0.05)
[2021-07-02 22:05] LABS: TOTAL CARBON DIOXIDE 14.7 MMOL/L (24-32)
[2021-07-02 22:08] LABS: CREATINE KINASE 1873 U/L (39-308)
[2021-07-02 22:17] LABS: CKMB RELATIVE INDEX 34.7 RATIO (0-2.5)
[2021-07-02] MEDS ORDERED: furosemide 40mg/4ml inj IV ONE (22:25)
[2021-07-02] MEDS ORDERED: furosemide 40mg/4ml inj ONE (22:27)
[2021-07-03] VITALS (23 sets, daily range): BP systolic 88–122; BP diastolic 49–69
[2021-07-03] MEDS: midazolam 100mg in NS 100ml 100 ML IV PRN ×3 (01:11→17:38)
[2021-07-03] MEDS: FENTANYL-0.9 % NACL/PF 100 ML IV PRN ×4 (01:11→22:15)
[2021-07-03 01:21] LABS: PARTIAL THROMBOPLASTIN TIME 73 SECONDS (22-32)
[2021-07-03] MEDS: epiNEPHrine inj 5 MG in normal saline 250ml IV soln 245 ML IV SCH (02:10)
[2021-07-03 03:46] LABS: ABG BASE EXCESS -11.6 mmol/L (-2.0-2.0); ABG HCO3 13.2 mmol/L (22.0-26.0); ABG OXYGEN SATURATION 93.8 % (94-97); ABG PCO2 (T) 25.8 mmHg (35.0-48.0); ABG PO2 (T) 63.2 mmHg (75.0-100.0); FCOHb 1.8 % (0.0-3.9); FMetHb 0.3 % (0.0-1.5); FO2Hb 91.8 % (94-97); PATIENT TEMPERATURE 35.4; PEEP 5 cm H2O; RESPIRATORY RATE 30 b/min; TOTAL HEMOGLOBIN 14.2 G/dl (14.0-18.0)
[2021-07-03 03:54] LABS: BASOPHILS % (AUTO) 0.1 % (0-1); EOSINOPHILS % (AUTO) 0.1 % (0-6); HEMATOCRIT 42.7 % (42.0-52.0); HEMOGLOBIN 14.5 g/dl (14.0-17.9); LYMPHOCYTES # (AUTO) 0.7 X10'3 (1.1-4.8); LYMPHOCYTES % (AUTO) 6.1 % (21-51); MEAN CORPUSCULAR HEMOGLOBIN 36.4 PG (27.0-31.0); MEAN CORPUSCULAR HGB CONC 34.1 g/dL (33.0-36.5); MEAN CORPUSCULAR VOLUME 106.8 FL (78-98); MEAN PLATELET VOLUME 8.2 FL (7.4-10.4); MONOCYTES # (AUTO) 0.5 X10'3 (0-0.9); MONOCYTES % (AUTO) 4.2 % (2-12); NEUTROPHILS # (AUTO) 10.3 X10'3 (1.8-7.7); NEUTROPHILS % (AUTO) 89.5 % (42-75); PLATELET COUNT 283 X10'3 (140-440); RED CELL DISTRIBUTION WIDTH 14.5 % (11.5-14.5); WHITE BLOOD COUNT 11.5 X10'3 (4.5-11.0)
[2021-07-03] MEDS: epiNEPHrine inj 10 MG in normal saline 250ml IV soln 240 ML IV SCH ×2 (04:33→08:31)
[2021-07-03] MEDS: normal saline 1000ml 1,000 ML IV SCH (04:33)
[2021-07-03] MEDS: NORepinephrine 8mg/ 250ml NS 250 ML IV PRN ×3 (04:33→16:36)
[2021-07-03 04:47] LABS: ALBUMIN 1.9 G/DL (3.4-5.0); ANION GAP 20 (8-16); BLOOD UREA NITROGEN 41 MG/DL (7-18); BUN/CREATININE RATIO 14.9 (5.4-32.0); CALCIUM 7.1 MG/DL (8.5-10.1); CHLORIDE 114 MMOL/L (99-107); CREATININE 2.75 MG/DL (0.60-1.10); GLUCOSE 132 MG/DL (70-104); MAGNESIUM 2.1 MG/DL (1.5-2.4); PHOSPHORUS 4.1 MG/DL (2.3-4.5); POTASSIUM 3.4 MMOL/L (3.5-5.1); SODIUM 148 MMOL/L (135-145); eGFR 24 ML/MIN
[2021-07-03 04:52] LABS: CKMB RELATIVE INDEX 40.5 RATIO (0-2.5); CREATINE KINASE 1407 U/L (39-308)
[2021-07-03 05:22] LABS: TROPONIN I 89.92 NG/ML (0.0-0.05)
[2021-07-03 05:54] LABS: PARTIAL THROMBOPLASTIN TIME 61 SECONDS (22-32)
--- NOTE | 2021-07-03 06:30 | NUR ---
Patient in room ICU 2042. I have received report from Sunitha ALLRED and had the opportunity to ask questions and assume patient care.
[2021-07-03] MEDS ORDERED: furosemide 40mg/4ml inj IV ONE (06:45)
[2021-07-03] MEDS: lisinopril 5mg tablet PO SCH (08:00)
[2021-07-03] MEDS: carvedilol 6.25mg tablet PO SCH ×2 (08:00→20:00)
[2021-07-03] MEDS: aspirin 81mg tab.chew PO SCH (08:05)
[2021-07-03] MEDS: pantoprazole 40 MG vial IV SCH (08:05)
[2021-07-03] MEDS: ticagrelor 90mg tablet PO SCH ×2 (08:05→20:00)
[2021-07-03] MEDS: amiodarone/D5 360MG/200ML BAG 200 ML IV SCH ×4 (08:06→19:30)
--- NOTE | 2021-07-03 08:07 | NUR ---
Spoke to Dr. Oconnell in regards to coreg and lisinopril, he stated to hold meds due to use of iv vasopressors
[2021-07-03] MEDS ORDERED: furosemide 10 MG/1 ML 10ml inj IV ONE (08:30)
[2021-07-03 10:01] LABS: PHOSPHORUS 3.2 MG/DL (2.3-4.5)
[2021-07-03] MEDS: sodium chloride 0.45% 1,000 ML IV SCH ×3 (10:41→23:59)
[2021-07-03] MEDS ORDERED: potassium Cl 20 mEq/100mL bag IV ONE (10:55)
--- NOTE | 2021-07-03 10:57 | NUR ---
Rounds note; Systems, labs, meds and drips reviewed. D/C ckmb and ck and make them daily labs, continue q8 bmp for now and keep potassium above 4.0 but [address] md for replacement orders due to renal function. 20meq ordered 1 time dose now
--- NOTE | 2021-07-03 11:04 | NUR ---
Problems reprioritized. Patient report given, questions answered & plan of care reviewed with Estuardo Dickinson.
[2021-07-03 11:07] LABS: CKMB RELATIVE INDEX 39.1 RATIO (0-2.5)
--- NOTE | 2021-07-03 11:47 | NUR ---
Rigoberto consult: Per RN, pt only w/ abrasion on head and no other open wounds, will continue to monitor. Addendum: 07/03/21 at [address] Amended: Links added.
[2021-07-03] MEDS ORDERED: DOBUTamine-DoBUTrex 500mg/D5W 250 ML IV SCH ×2 (12:30→15:51)
[2021-07-03 12:38] LABS: ALBUMIN 1.7 G/DL (3.4-5.0); ANION GAP 17 (8-16); BLOOD UREA NITROGEN 47 MG/DL (7-18); BUN/CREATININE RATIO 14.9 (5.4-32.0); CALCIUM 6.7 MG/DL (8.5-10.1); CHLORIDE 114 MMOL/L (99-107); CREATININE 3.16 MG/DL (0.60-1.10); GLUCOSE 98 MG/DL (70-104); POTASSIUM 4.6 MMOL/L (3.5-5.1); SODIUM 146 MMOL/L (135-145); TOTAL CARBON DIOXIDE 15.5 MMOL/L (24-32); eGFR 20 ML/MIN
[2021-07-03 12:39] LABS: PARTIAL THROMBOPLASTIN TIME 54 SECONDS (22-32)
[2021-07-03] MEDS ORDERED: albumin (Human) 5% 250ml 250 ML IV ONE (14:30)
[2021-07-03 18:17] LABS: PARTIAL THROMBOPLASTIN TIME 66 SECONDS (22-32)
[2021-07-03 20:05] LABS: ALBUMIN 1.7 G/DL (3.4-5.0); ANION GAP 17 (8-16); BLOOD UREA NITROGEN 49 MG/DL (7-18); BUN/CREATININE RATIO 15.4 (5.4-32.0); CALCIUM 6.2 MG/DL (8.5-10.1); CHLORIDE 110 MMOL/L (99-107); CREATININE 3.18 MG/DL (0.60-1.10); GLUCOSE 96 MG/DL (70-104); POTASSIUM 4.3 MMOL/L (3.5-5.1); SODIUM 142 MMOL/L (135-145); eGFR 20 ML/MIN
[2021-07-03] MEDS: insulin glargine (Lantus) pen - multi-dose SQ SCH (21:00)
[2021-07-03] MEDS: NORepinephrine inj. 32 MG in normal saline 250ml IV soln 218 ML IV PRN (21:13)
[2021-07-03 21:19] LABS: ABG BASE EXCESS -10.8 mmol/L (-2.0-2.0); ABG OXYGEN SATURATION 95.5 % (94-97); ABG PCO2 (T) 20.6 mmHg (35.0-48.0); ABG PO2 (T) 81.2 mmHg (75.0-100.0); FCOHb 1.2 % (0.0-3.9); FMetHb 0.3 % (0.0-1.5); FO2Hb 94.1 % (94-97); PATIENT TEMPERATURE 37.2; PEEP 5 cm H2O; RESPIRATORY RATE 30 b/min; TOTAL HEMOGLOBIN 12.8 G/dl (14.0-18.0)
[2021-07-03] MEDS ORDERED: vasopressin inj. 40 UNIT in normal saline 50ml IV soln 38 ML IV SCH (23:05)
[2021-07-04] VITALS (34 sets, daily range): BP systolic 72–132; BP diastolic 35–69
[2021-07-04] MEDS: amiodarone/D5 360MG/200ML BAG 200 ML IV SCH ×3 (00:14→18:42)
[2021-07-04] MEDS: epiNEPHrine inj 10 MG in normal saline 250ml IV soln 240 ML IV SCH ×5 (01:04→23:44)
[2021-07-04 01:10] LABS: PARTIAL THROMBOPLASTIN TIME 70 SECONDS (22-32)
--- NOTE | 2021-07-04 02:35 | NUR ---
Pupils at 1900 3mm PERRLA. Pressor requirement began increasing rapidly, pupils rechecked right pupil blown and irregular and left pupil 4mm and irregular. MD Cate called. STAT head CT obtained and results provided to . suggested speaking with family in case pt doesn't make it through the night. Notified leonidas Montiel who sat at bedside with him and all questions were answered by poonam Harrison RN and myself.
[2021-07-04 02:54] LABS: ABG BASE EXCESS -9.2 mmol/L (-2.0-2.0); ABG OXYGEN SATURATION 94.8 % (94-97); ABG PO2 (T) 75.4 mmHg (75.0-100.0); FCOHb 1.5 % (0.0-3.9); FMetHb 0.3 % (0.0-1.5); FO2Hb 93.1 % (94-97); PATIENT TEMPERATURE 37.4; PEEP 5 cm H2O; RESPIRATORY RATE 30 b/min; TOTAL HEMOGLOBIN 12.3 G/dl (14.0-18.0)
[2021-07-04 03:10] LABS: BASOPHILS % (AUTO) 0.2 % (0-1); EOSINOPHILS % (AUTO) 0.4 % (0-6); HEMOGLOBIN 12.5 g/dl (14.0-17.9); LYMPHOCYTES # (AUTO) 0.6 X10'3 (1.1-4.8); MONOCYTES # (AUTO) 0.1 X10'3 (0-0.9)
[2021-07-04 03:14] LABS: LYMPHOCYTES % (AUTO) 8.2 % (21-51); MEAN CORPUSCULAR HEMOGLOBIN 37.4 PG (27.0-31.0); MEAN CORPUSCULAR HGB CONC 35.8 g/dL (33.0-36.5); MEAN CORPUSCULAR VOLUME 104.6 FL (78-98); MEAN PLATELET VOLUME 8.6 FL (7.4-10.4); MONOCYTES % (AUTO) 1.8 % (2-12); NEUTROPHILS # (AUTO) 6.7 X10'3 (1.8-7.7); NEUTROPHILS % (AUTO) 89.4 % (42-75); PLATELET COUNT 174 X10'3 (140-440); RED BLOOD COUNT 3.35 X10'6 (4.70-6.10); RED CELL DISTRIBUTION WIDTH 14.4 % (11.5-14.5); WHITE BLOOD COUNT 7.5 X10'3 (4.5-11.0)
[2021-07-04 03:29] LABS: ALBUMIN 1.6 G/DL (3.4-5.0); ANION GAP 18 (8-16); BLOOD UREA NITROGEN 52 MG/DL (7-18); BUN/CREATININE RATIO 16.4 (5.4-32.0); CALCIUM 6.3 MG/DL (8.5-10.1); CHLORIDE 112 MMOL/L (99-107); CREATININE 3.18 MG/DL (0.60-1.10); GLUCOSE 111 MG/DL (70-104); MAGNESIUM 1.6 MG/DL (1.5-2.4); SODIUM 144 MMOL/L (135-145); eGFR 20 ML/MIN
[2021-07-04 03:32] LABS: CKMB RELATIVE INDEX 7.7 RATIO (0-2.5); CREATINE KINASE 1290 U/L (39-308)
[2021-07-04 03:40] LABS: TOTAL CARBON DIOXIDE 13.8 MMOL/L (24-32)
[2021-07-04] MEDS: NORepinephrine inj. 32 MG in normal saline 250ml IV soln 218 ML IV PRN ×3 (05:01→21:29)
[2021-07-04 05:34] LABS: NUCLEATED RED BLOOD CELLS 1 /100WBC (0-0); PLATELET ESTIMATE NORMAL; TOTAL CELLS COUNTED 100
[2021-07-04 05:35] LABS: BURR CELLS 1+; TOXIC GRANULATION 1+
[2021-07-04 05:50] LABS: PARTIAL THROMBOPLASTIN TIME 74 SECONDS (22-32)
[2021-07-04] MEDS: sodium chloride 0.45% 1,000 ML IV SCH ×3 (05:50→20:30)
[2021-07-04] MEDS: pantoprazole 40 MG vial IV SCH (07:39)
[2021-07-04] MEDS: lisinopril 5mg tablet PO SCH (07:39)
[2021-07-04] MEDS: ticagrelor 90mg tablet PO SCH ×2 (07:39→20:00)
[2021-07-04] MEDS: aspirin 81mg tab.chew PO SCH (07:39)
[2021-07-04] MEDS: carvedilol 6.25mg tablet PO SCH ×2 (07:40→21:28)
[2021-07-04 12:50] LABS: PARTIAL THROMBOPLASTIN TIME 64 SECONDS (22-32)
[2021-07-04 12:52] LABS: ALBUMIN 1.5 G/DL (3.4-5.0); ANION GAP 18 (8-16); BLOOD UREA NITROGEN 57 MG/DL (7-18); BUN/CREATININE RATIO 18.4 (5.4-32.0); CALCIUM 6.4 MG/DL (8.5-10.1); CHLORIDE 108 MMOL/L (99-107); GLUCOSE 120 MG/DL (70-104); POTASSIUM 4.3 MMOL/L (3.5-5.1); SODIUM 142 MMOL/L (135-145); TOTAL CARBON DIOXIDE 16.2 MMOL/L (24-32); eGFR 21 ML/MIN
[2021-07-04 13:29] LABS: ALANINE AMINOTRANSFERASE 67 U/L (12-78); ALBUMIN 1.5 G/DL (3.4-5.0); ALBUMIN/GLOBULIN RATIO 0.5 (1.1-1.5); ALKALINE PHOSPHATASE 93 IU/L (46-116); ANION GAP 19 (8-16); ASPARTATE AMINO TRANSFERASE 159 U/L (10-37); BILIRUBIN,DIRECT 0.7 MG/DL (0-0.3); BILIRUBIN,TOTAL 1.2 MG/DL (0.1-1.0); BLOOD UREA NITROGEN 57 MG/DL (7-18); BUN/CREATININE RATIO 18.6 (5.4-32.0); CALCIUM 6.4 MG/DL (8.5-10.1); CHLORIDE 110 MMOL/L (99-107); CREATININE 3.07 MG/DL (0.60-1.10); GLUCOSE 119 MG/DL (70-104); POTASSIUM 4.3 MMOL/L (3.5-5.1); SODIUM 143 MMOL/L (135-145); TOTAL PROTEIN 4.7 G/DL (6.4-8.2); eGFR 21 ML/MIN
[2021-07-04 13:30] LABS: TOTAL CARBON DIOXIDE 14.2 MMOL/L (24-32)
[2021-07-04] MEDS: FENTANYL-0.9 % NACL/PF 100 ML IV PRN (14:40)
[2021-07-04 19:59] LABS: ABG BASE EXCESS -11.9 mmol/L (-2.0-2.0); ABG HCO3 15.7 mmol/L (22.0-26.0); ABG OXYGEN SATURATION 91.6 % (94-97); ABG PCO2 (T) 45.5 mmHg (35.0-48.0); ABG PO2 (T) 80.8 mmHg (75.0-100.0); FCOHb 1.3 % (0.0-3.9); FMetHb 0.3 % (0.0-1.5); FO2Hb 90.1 % (94-97); PATIENT TEMPERATURE 38.7; PEEP 5 cm H2O; RESPIRATORY RATE 20 b/min; TOTAL HEMOGLOBIN 11.7 G/dl (14.0-18.0)
[2021-07-04 21:00] LABS: BASOPHILS % (AUTO) 0.4 % (0-1); MEAN PLATELET VOLUME 8.3 FL (7.4-10.4); MONOCYTES # (AUTO) 0.2 X10'3 (0-0.9); PLATELET COUNT 180 X10'3 (140-440); WHITE BLOOD COUNT 9.2 X10'3 (4.5-11.0)
[2021-07-04] MEDS: insulin glargine (Lantus) pen - multi-dose SQ SCH (21:00)
[2021-07-04 21:01] LABS: EOSINOPHILS # (AUTO) 0.1 X10'3 (0-0.9)
[2021-07-04 21:02] LABS: EOSINOPHILS % (AUTO) 0.9 % (0-6); HEMATOCRIT 34.8 % (42.0-52.0); HEMOGLOBIN 11.6 g/dl (14.0-17.9); LYMPHOCYTES # (AUTO) 0.5 X10'3 (1.1-4.8); LYMPHOCYTES % (AUTO) 5.8 % (21-51); MEAN CORPUSCULAR HEMOGLOBIN 36.3 PG (27.0-31.0); MEAN CORPUSCULAR HGB CONC 33.4 g/dL (33.0-36.5); MEAN CORPUSCULAR VOLUME 108.8 FL (78-98); MONOCYTES % (AUTO) 2.6 % (2-12); NEUTROPHILS # (AUTO) 8.3 X10'3 (1.8-7.7); NEUTROPHILS % (AUTO) 90.3 % (42-75); RED CELL DISTRIBUTION WIDTH 14.7 % (11.5-14.5)
[2021-07-04 21:13] LABS: MAGNESIUM 1.6 MG/DL (1.5-2.4); PHOSPHORUS 6.3 MG/DL (2.3-4.5)
[2021-07-04 21:17] LABS: PARTIAL THROMBOPLASTIN TIME 72 SECONDS (22-32)
[2021-07-04 21:19] LABS: CLARITY,URINE SLIGHTLY CLOUDY (Clear); COLOR,URINE YELLOW (Yellow); GLUCOSE, URINE NEGATIVE (Neg); PROTEIN,URINE NEGATIVE (Neg); UA COLLECTION TYPE NON-SPECIFIED
[2021-07-04 21:20] LABS: KETONES,URINE NEGATIVE (Neg); LEUKOCYTE ESTERASE ,URINE NEGATIVE (Neg); NITRITES, URINE NEGATIVE (Neg); OCCULT BLOOD,URINE MODERATE (Neg); UROBILINOGEN,URINE 0.2 E.U/dL (0.2-1.0)
[2021-07-04 21:25] LABS: BACTERIA,URINE 1+ /HPF (Neg); MUCUS STRANDS FEW /LPF (Neg); SQUAMOUS EPITHELIAL CELL,UR FEW /LPF (FEW); WBC,URINE 0-4 /HPF (0-4)
[2021-07-04 21:26] LABS: ALBUMIN 1.3 G/DL (3.4-5.0); AMORPHOUS URATES 1+; ANION GAP 14 (8-16); BLOOD UREA NITROGEN 61 MG/DL (7-18); BUN/CREATININE RATIO 19.8 (5.4-32.0); CALCIUM 6.1 MG/DL (8.5-10.1); CHLORIDE 110 MMOL/L (99-107); CREATININE 3.08 MG/DL (0.60-1.10); GLUCOSE 99 MG/DL (70-104); SODIUM 141 MMOL/L (135-145); TOTAL CARBON DIOXIDE 17.2 MMOL/L (24-32); eGFR 21 ML/MIN
[2021-07-04 21:28] LABS: POTASSIUM 4.8 MMOL/L (3.5-5.1)
[2021-07-04] MEDS ORDERED: albumin (Human) 5% 250ml 250 ML IV STA (22:57)
[2021-07-04] MEDS ORDERED: albumin (Human) 5% 250ml 250 ML IV ONE (22:59)
[2021-07-05] VITALS (19 sets, daily range): BP systolic 66–95; BP diastolic 32–45
[2021-07-05] MEDS ORDERED: albumin (human) 25% 100 ML IV solution IV ONE (00:40)
[2021-07-05] MEDS: amiodarone/D5 360MG/200ML BAG 200 ML IV SCH ×2 (00:48→07:07)
[2021-07-05] MEDS ORDERED: furosemide 40mg/4ml inj IV ONE (01:30)
[2021-07-05] MEDS ORDERED: furosemide 40mg/4ml inj ONE (01:32)
--- NOTE | 2021-07-05 03:00 | NUR ---
unable to maintain BPM >60 with pressors at max dosages. Albumin given without response. [facility] states pt no longer a donor candidate, and are withdrawing from the case. Attempted to notify family without success
[2021-07-05] MEDS: epiNEPHrine inj 10 MG in normal saline 250ml IV soln 240 ML IV SCH ×2 (03:02→05:59)
[2021-07-05] MEDS: sodium chloride 0.45% 1,000 ML IV SCH (03:59)
[2021-07-05] MEDS: NORepinephrine inj. 32 MG in normal saline 250ml IV soln 218 ML IV PRN (04:59)
== END 2021-07-05 10:22 | DRG 174 ==
LOC: ER 11:31 → ED HOLD 12:22 → EDBEDREQ 16:34 → ICU 2S 17:49
PROVIDERS: ADMIT Surgery; ATTEND Surgery
PROC: 5A1945Z Respiratory Ventilation, 24-96 Consecutive Hours (ICD-10-PCS; principal; 2021-07-01)
PROC: 027034Z Dilation of Coronary Artery, One Artery with Drug-eluting Intraluminal Device, Percutaneous Approach (ICD-10-PCS; 2021-07-01)
PROC: 5A12012 Performance of Cardiac Output, Single, Manual (ICD-10-PCS; 2021-07-01)
PROC: 0BH17EZ Insertion of Endotracheal Airway into Trachea, Via Natural or Artificial Opening (ICD-10-PCS; 2021-07-01)
PROC: 4A023N7 Measurement of Cardiac Sampling and Pressure, Left Heart, Percutaneous Approach (ICD-10-PCS; 2021-07-01)
PROC: B2111ZZ Fluoroscopy of Multiple Coronary Arteries using Low Osmolar Contrast (ICD-10-PCS; 2021-07-01)
PROC: B2151ZZ Fluoroscopy of Left Heart using Low Osmolar Contrast (ICD-10-PCS; 2021-07-01)
DX: I21.02 ST elevation (STEMI) myocardial infarction involving left anterior descending coronary artery (principal); J96.00 Acute respiratory failure, unspecified whether with hypoxia or hypercapnia; I46.2 Cardiac arrest due to underlying cardiac condition; G93.1 Anoxic brain damage, not elsewhere classified; N17.9 Acute kidney failure, unspecified; E78.5 Hyperlipidemia, unspecified; Z20.822 Contact with and (suspected) exposure to COVID-19; F17.210 Nicotine dependence, cigarettes, uncomplicated; I50.20 Unspecified systolic (congestive) heart failure; I74.3 Embolism and thrombosis of arteries of the lower extremities; I47.2 Ventricular tachycardia; F12.90 Cannabis use, unspecified, uncomplicated; W18.30XA Fall on same level, unspecified, initial encounter; I25.10 Atherosclerotic heart disease of native coronary artery without angina pectoris; I49.01 Ventricular fibrillation; J44.9 Chronic obstructive pulmonary disease, unspecified; R56.9 Unspecified convulsions; Z79.899 Other long term (current) drug therapy; Y93.89 Activity, other specified; Y92.090 Kitchen in other non-institutional residence as the place of occurrence of the external cause; Y99.8 Other external cause status; Z51.5 Encounter for palliative care
CPT/HCPCS: 36415; 36600; 70450; 71045; 76700; 80048; 80053; 80061; 80076; 81001; 82330; 82550; 82553; 82803; 82948; 82977; 83036; 83605; 83735; 83880; 84100; 84484; 85007; 85018; 85025; 85347; 85610; 85730; 86885; 86900; 86901; 87081; 87635; 92950; 93005; 93308; 93458; 93925; 94002; 94003; 94760; 96365; 96375; 99291; 99292; A5120; A6258; C1725; C1751; C1769; C1874; C1894; C9113; C9606; G0378; J0171; J0461; J1250; J1644; J1815; J1940; J2001; J2250; J3010; J3475; J3480; J3490; J7030; J7050; P9045; P9047; Q9967